=== PATIENT | male | born 1965 | race Native Hawaiian/Other Pacific Islander ===

== ENCOUNTER 2018-02-22 19:53 | Observation (INO) | payer BC ==
--- NOTE | 2018-02-22 20:44 | PDOC ---
History of Present Illness - General Chief Complaint: Rectal Bleed Stated Complaint: BLOOD IN STOOL Time Seen by Provider: 02/22/18 20:44 - History of Present Illness Initial Comments: 02/22/18 21:03 The patient is a 52 year old male with a history of Alcohol Abuse, Liver Disease who presents for evaluation of rectal bleeding. The patient reports noting dark red blood in his still yesterday evening prompting his presentation to the ED for further evaluation. He notes that he recently got out of rehab for alcohol abuse and is currently staying at a half-way house. He otherwise denies fevers, chills, SOB, chest pain, nausea, vomiting, abdominal pain, or changes with urination. Past History - Past Medical History Allergies/Adverse Reactions: Allergies Allergy/AdvReac Type Severity Reaction Status Date / Time No Known Allergies Allergy Verified 02/22/18 20:00 COPD: No Liver Disease: Yes - Suicide/Smoking/Psychosocial Hx Smoking History: Former smoker Have you smoked in the past 12 months: No Information on smoking cessation initiated: No Hx Alcohol Use: No Drug/Substance Use Hx: No Review of Systems - Review of Systems Comments:: 02/22/18 21:04 Constitutional: No fevers, chills, fatigue, malaise HEENT: No Rhinorrhea, nasal congestion, visual changes Cardiovascular: No chest pain, syncope, palpitations, lightheadedness Respiratory: Cough. No SOB, Hemoptysis, Gastrointestinal: Rectal Bleeding. No Abdominal pain, Nausea, Vomiting, Constipation, Diarrhea, Melena Genitourinary: No Dysuria, Frequency, Urgency, Hesitancy, Hematuria, Flank pain Musculoskeletal: No Myalgia, arthralgia Skin: No rashes, itching, bruising, pallor Neurologic: No Headache, Dizziness, Numbness, Weakness, or Tingling Psychiatric: No Hallucinations. No SI or HI *Physical Exam - Vital Signs Last Vital Signs Temp Pulse Resp BP Pulse Ox 98.0 F 115 H 16 138/79 100 02/22/18 19:57 02/22/18 19:57 02/22/18 19:57 02/22/18 19:57 02/22/18 19:57 - Physical Exam Comments: 02/22/18 21:05 General Appearance: Nourished. No Apparent Distress HEENT: Sclera Icteris noted on exam. No Pharyngeal Erythema, Tonsillar Exudate , Tonsillar Erythema Neck: No Cervical Lymphadenopathy Respiratory/Chest: Lungs Clear, Normal Breath Sounds. No Crackles, Rales, Rhonchi, Wheezing Cardiovascular: Regular Rhythm, Regular Rate. No Murmur, Gallops, Rubs Gastrointestinal/Abdominal: Normal Bowel Sounds, Soft. No Guarding, Rebound, Tenderness Rectal Exam: No Gross Blood or Melena. No Hemorrhoids Musculoskeletal: No CVA Tenderness Extremity: Normal Capillary Refill Integumentary: Normal Color, Dry, Warm Neurologic: Fully Oriented, Alert, Normal Mood/Affect, Normal Response, Moderate Sedation - Procedure Monitoring Vital Signs: Procedure Monitoring Vital Signs Temperature 98.0 F 02/22/18 19:57 Pulse Rate 115 H 02/22/18 19:57 Respiratory Rate 16 02/22/18 19:57 Blood Pressure 138/79 02/22/18 19:57 O2 Sat by Pulse Oximetry (%) 100 02/22/18 19:57 ED Treatment Course - LABORATORY CBC & Chemistry Diagram: 02/22/18 21:30 02/22/18 21:30 Medical Decision Making - Medical Decision Making 02/22/18 21:06 The patient is a 52 year old male with a history of Alcohol Abuse, Liver Disease who presents for evaluation of rectal bleeding. Given the patient's history and physical exam, we will obtain a cbc, cmp, ammonia, stool for occult blood, coags to evaluate further. We will continue to monitor and reassess while here in the ED. 02/22/18 22:39 CBC is unremarkable. CMP demonstrates a t.bili of 4.3. Stool for occult blood was positive. We have treated the patient with protonix here in the ED. Given his rectal bleeding, sclera icteris, elevated t.bili and poor outpatient follow up we believe he require observation admission for GI consultation. We will obtain a gallbladder US to evaluate further as well. We discussed the case with the hospitalist team who accepted the patient for admission. *DC/Admit/Observation/Transfer Diagnosis at time of Disposition: Rectal bleeding Abdominal pain Qualifiers: Abdominal location: unspecified location Qualified Code(s): R10.9 - Unspecified abdominal pain - Discharge Dispostion Condition at time of disposition: Stable Decision to Admit order: Yes - Referrals - Patient Instructions - Post Discharge Activity
[2018-02-22] MEDS ORDERED: PANTOPRAZOLE SODIUM 40 MG VIAL IVPUSH ONE (21:10)
[2018-02-22 21:49] LABS: BASO % 0.9 % (0-2.0); EOS % 0.3 % (0-4.5); HEMATOCRIT 38.5 % (35.4-49); HEMOGLOBIN 13.6 GM/dL (11.7-16.9); LYMPH % 18.3 % (8-40); MCH 39.2 pg (25.7-33.7); MCHC 35.3 g/dl (32.0-35.9); MEAN PLT VOLUME 7.9 fl (7.5-11.1); MONO % 12.3 % (3.8-10.2); NEUT % 68.2 % (42.8-82.8); PLATELET COUNT 297 K/MM3 (134-434); RBC 3.47 M/mm3 (4.00-5.60); RDW 16.5 % (11.9-15.9); WHITE BLOOD COUNT 6.7 K/mm3 (4.0-10.0)
--- NOTE | 2018-02-22 21:50 | PDOC ---
Attending Attestation - Resident Resident Name: Kali Ferris - ED Attending Attestation I have performed the following: I have examined & evaluated the patient, The case was reviewed & discussed with the resident, I agree w/resident's findings & plan, Exceptions are as noted - HPI HPI: 02/22/18 21:48 52-year-old male presents because he found red blood in his stool Patient denies any fever or chills or diarrhea. Past medical history long-standing alcohol abuse, liver cirrhosis, recently discharged from [facility] and currently in a [facility] house here in [place]. He typically resides in the [place], [place]. He has no primary care physician and usually does not seek any medical care - Physicial Exam PE: 02/22/18 21:50 52 yo male looking p/w history of red blood in his stool head ncat eyes icteric sclera,olinda,eomi lungs no wheezing,no crackles,cta b/l cvs [id number] abd no guarding,no rebound no cva tenderness ext + pedal edema rectal brown stool, no melena skin warm and dry neuro axox3, ambulatory 02/22/18 22:22 - Medical Decision Making 02/22/18 22:23 stool culture for blood is POSITIVE no anemia LFT and tbili elevated ammonia level is high >85 02/22/18 23:47 pt admitted to med/surg
[2018-02-22 22:05] LABS: INR 1.54 (0.83-1.09); PROTHROMBIN TIME (PATIENT) 18.3 SEC (9.7-13.0)
[2018-02-22 22:12] LABS: ALBUMIN 2.7 g/dl (3.4-5.0); ALK PHOS 100 U/L (45-117); ANION GAP 10 MMOL/L (8-16); BILIRUBIN,TOTAL 4.3 mg/dL (0.2-1); BLOOD UREA NITROGEN 9 mg/dL (7-18); CALCIUM 8.5 mg/dL (8.5-10.1); CHLORIDE 108 mmol/L (98-107); CO2 26 mmol/L (21-32); CREATININE 0.7 mg/dL (0.55-1.3); GLUCOSE,RANDOM 86 mg/dL (74-106); POTASSIUM 3.9 mmol/L (3.5-5.1); SGOT/AST 134 U/L (15-37); SGPT/ALT 47 U/L (13-61); SODIUM 143 mmol/L (136-145); TOT PROT 6.4 g/dl (6.4-8.2)
[2018-02-22] MEDS ORDERED: PANTOPRAZOLE SODIUM 40 MG VIAL ONE (22:56)
--- NOTE | 2018-02-22 23:12 | HP ---
CHIEF COMPLAINT: abdominal pain and had bright red blood from rectum yesterday PCP:none HISTORY OF PRESENT ILLNESS: 52 year old male with history of alcohol abuse, liver cirrhosis and known gallbladder sludge who just completed 27 days of detox in rehabilitation who presents with symptoms of abdominal pain and bright red blood from the rectum which started yesterday. He reports mild shortness of breath. He denies chest pain, syncopy, dizziness, fever, chills, diarrhea or malaise. Upon evaluation in the ER he was found to have an elevated total bilirubin of 4.3, alt 47 and ast 134, normal platelets, hematocrit and hemoglobin . Ammonia level is elevated at 86.17 and a low albumin. Blood stool guaiac is positive. He is hemodynamically stable and currently has no evidence of active bleeding. He was given one dosage of IV protonix in the ER.He is pending a gallbladder ultrasound. ER course was notable for: (1)?GI Bleed(stool occult positive) (2)ETOH Abuse/ Liver Cirrhosis /Gallbladder sludge Recent Travel:Denies PAST MEDICAL HISTORY: Alcohol Abuse Liver Cirrhosis PAST SURGICAL HISTORY: Knee Surgery Social History: Smoking: smokes for >20 years, reports about 5 cigarettes /day Alcohol:history of alcohol abuse, just completed detox/rehab,reports last drink was 27 days ago Drugs: denies Family History: Allergies No Known Allergies Allergy (Verified 02/22/18 20:00) HOME MEDICATIONS: REVIEW OF SYSTEMS CONSTITUTIONAL: Absent: fever, chills, diaphoresis, generalized weakness, malaise, loss of appetite, weight change HEENT: Absent: rhinorrhea, nasal congestion, throat pain, throat swelling, difficulty swallowing, mouth swelling, ear pain, eye pain, visual changes CARDIOVASCULAR: Absent: chest pain, syncope, palpitations, irregular heart rate, lightheadedness , peripheral edema RESPIRATORY: Absent: cough, mild shortness of breath, dyspnea with exertion, orthopnea, wheezing, stridor, hemoptysis GASTROINTESTINAL: Absent: abdominal pain, abdominal distension, nausea, vomiting, diarrhea, constipation, melena, hematochezia GENITOURINARY: Absent: dysuria, frequency, urgency, hesitancy, hematuria, flank pain, genital pain, rectal bleed MUSCULOSKELETAL: Absent: myalgia, arthralgia, joint swelling, back pain, neck pain SKIN: Absent: rash, itching, pallor HEMATOLOGIC/IMMUNOLOGIC: Absent: easy bleeding, easy bruising, lymphadenopathy, frequent infections ENDOCRINE: Absent: unexplained weight gain, unexplained weight loss, heat intolerance, cold intolerance NEUROLOGIC: Absent: headache, focal weakness or paresthesias, dizziness, unsteady gait, seizure, mental status changes, bladder or bowel incontinence PSYCHIATRIC: Absent: anxiety, depression, suicidal or homicidal ideation, hallucinations. PHYSICAL EXAMINATION Vital Signs - 24 hr 02/22/18 19:57 Temperature 98.0 F Pulse Rate 115 H Respiratory 16 Rate Blood Pressure 138/79 O2 Sat by Pulse 100 Oximetry (%) GENERAL: awake, alert, and fully oriented, in no acute distress HEAD: normal with no signs of trauma EYES: pupils equal, round and reactive to light, sclera anicteric EARS, NOSE, THROAT: ears normal, nares patent, oropharynx clear without exudates. moist mucous membranes. NECK: Normal range of motion, supple without lymphadenopathy, JVD, or masses. LUNGS: Breath sounds equal, clear to auscultation bilaterally. no wheezes, and no crackles. no accessory muscle use HEART: Regular rate and rhythm, normal S1 and S2 without murmur, rub or gallop ABDOMEN: soft, nontender, not distended, normoactive bowel sounds, no guarding, no rebound, no masses MUSCULOSKELETAL: Normal range of motion at all joints. No bony deformities or tenderness. No CVA tenderness. UPPER EXTREMITIES: 2+ pulses, warm, well-perfused. No cyanosis. No clubbing. No peripheral edema LOWER EXTREMITIES: 2+ pulses, warm, well-perfused. No calf tenderness. No peripheral edema NEUROLOGICAL: normal speech Psch: Appropriate and cooperative SKIN: Warm, dry, normal turgor, no rashes or lesions noted, normal capillary refill. Laboratory Results - last 24 hr 02/22/18 02/22/18 02/22/18 20:50 21:30 21:30 WBC 6.7 RBC 3.47 L Hgb 13.6 Hct 38.5 MCV 111.0 H MCH 39.2 H MCHC 35.3 RDW 16.5 H Plt Count 297 MPV 7.9 Absolute Neuts (auto) 4.6 Neutrophils % 68.2 Lymphocytes % 18.3 Monocytes % 12.3 H Eosinophils % 0.3 Basophils % 0.9 Nucleated RBC % 0 PT with INR 18.30 H INR 1.54 H PTT (Actin FS) 36.0 Sodium Potassium Chloride Carbon Dioxide Anion Gap BUN Creatinine Creat Clearance w eGFR Random Glucose Calcium Total Bilirubin AST ALT Alkaline Phosphatase Ammonia Total Protein Albumin Stool Occult Blood Positive 02/22/18 02/22/18 21:30 21:30 WBC RBC Hgb Hct MCV MCH MCHC RDW Plt Count MPV Absolute Neuts (auto) Neutrophils % Lymphocytes % Monocytes % Eosinophils % Basophils % Nucleated RBC % PT with INR INR PTT (Actin FS) Sodium 143 Potassium 3.9 Chloride 108 H Carbon Dioxide 26 Anion Gap 10 BUN 9 Creatinine 0.7 Creat Clearance w eGFR > 60 Random Glucose 86 Calcium 8.5 Total Bilirubin 4.3 H AST 134 H ALT 47 Alkaline Phosphatase 100 Ammonia 86.17 H Total Protein 6.4 Albumin 2.7 L Stool Occult Blood ASSESSMENT/PLAN: 52 year old male with history of alcohol abuse, liver cirrhosis and known gallbladder sludge who just completed 27 days of detox in ehabilitation facility who presented with symptoms of abdominal pain and bright red blood from the rectum. He was found to have an elevated total bilirubin of 4.3, alt 47 and ast 134, normal platelets, hematocrit and hemoglobin . Ammonia level was elevated. Blood stool guaiac was positive. ?GI Bleed(stool occult positive) Hemodynamically stable, tacycardic in this setting, afebrile, no significant anemia, no thrombocytopenia. Received IV protonix. Avoid NSAID's and aspirin. NPO after midnight in anticipation of GI procedure tomorrow. GI consulted - Dr. Phillips. Known Gallbladder Sludge Pending gallbladder US. ETOH Abuse/ Liver Cirrhosis Ammonia level elevated. No evidence of DT's/withdrawal or encephalopathy. Low albumin, Added thiamine and folic acid. FEN NPO after midnight.Monitor electrolytes. Visit type - Emergency Visit Emergency Visit: Yes ED Registration Date: 02/22/18 Care time: The patient presented to the Emergency Department on the above date and was hospitalized for further evaluation of their emergent condition. - New Patient This patient is new to me today: Yes Date on this admission: 02/22/18 - Critical Care Critical Care patient: No
[2018-02-23 01:29] LABS: ANISOCYTOSIS 1+; MACROCYTOSIS 2+; PLATELET ESTIMATE NORMAL
[2018-02-23 01:50] VITALS: BMI 30.9
[2018-02-23 07:44] LABS: ALBUMIN 2.3 g/dl (3.4-5.0); ALK PHOS 81 U/L (45-117); ANION GAP 5 MMOL/L (8-16); BILIRUBIN,TOTAL 3.6 mg/dL (0.2-1); BLOOD UREA NITROGEN 8 mg/dL (7-18); CHLORIDE 109 mmol/L (98-107); CO2 28 mmol/L (21-32); CREATININE 0.5 mg/dL (0.55-1.3); GLUCOSE,RANDOM 76 mg/dL (74-106); POTASSIUM 4.1 mmol/L (3.5-5.1); SGOT/AST 103 U/L (15-37); SGPT/ALT 38 U/L (13-61); SODIUM 142 mmol/L (136-145); TOT PROT 5.6 g/dl (6.4-8.2)
[2018-02-23 08:36] LABS: HEMATOCRIT 35.6 % (35.4-49); HEMOGLOBIN 12.6 GM/dL (11.7-16.9); MCH 38.8 pg (25.7-33.7); MCHC 35.5 g/dl (32.0-35.9); MEAN CELL VOLUME 109.5 fl (80-96); MEAN PLT VOLUME 8.1 fl (7.5-11.1); PLATELET COUNT 257 K/MM3 (134-434); RBC 3.25 M/mm3 (4.00-5.60); RDW 16.6 % (11.9-15.9); WHITE BLOOD COUNT 5.6 K/mm3 (4.0-10.0)
--- NOTE | 2018-02-23 09:39 | EKG ---
Test Reason : Blood Pressure : / mmHG Vent. Rate : 097 BPM Atrial Rate : 097 BPM P-R Int : 132 ms QRS Dur : 076 ms QT Int : 362 ms P-R-T Axes : -11 -26 008 degrees QTc Int : 459 ms NORMAL SINUS RHYTHM SEPTAL INFARCT , AGE UNDETERMINED ABNORMAL ECG NO PREVIOUS ECGS AVAILABLE Confirmed by EDILBERTO CERVANTES, RUFINA ([id number]) on 02/23/2018 9:38:47 AM Referred By: Confirmed By:RUFINA CASANOVA MD
[2018-02-23] MEDS: THIAMINE HCL 100 MG TABLET (FP) PO SCH (10:34)
[2018-02-23] MEDS: FOLIC ACID 1 MG TABLET (FP) PO SCH (10:34)
--- NOTE | 2018-02-23 12:49 | CON.GI ---
Consult Consult Specialty:: Medicine Reason for Consultation:: rectal bleed, cirrhosis - History of Present Illness Chief Complaint: BRBPR History of Present Illness: 52M with h/o ETOH and seems cirrhosis based on imaging here presenting for evaluation of multiple episodes of hematochezia friday and friday. He denies stool with these episodes, states >20 times. No dizziness or lightheadedness, no N/V. +ETOH hx, was sober for 6 years but relapsed recently after family and completed 1 month rehab. Reports no prior endoscopy or colonoscopy. Is having clears today, but reports that last episode of bleeding was just before interview. - History Source History Provided By: Patient Limitations to Obtaining History: No Limitations - Alcohol/Substance Use Hx Alcohol Use: Yes (2 quarts of vodka daily) - Smoking History Smoking history: Current every day smoker Have you smoked in the past 12 months: Yes Aproximately how many cigarettes per day: 5 Home Medications - Allergies Allergies/Adverse Reactions: Allergies Allergy/AdvReac Type Severity Reaction Status Date / Time No Known Allergies Allergy Verified 02/22/18 20:00 Review of Systems - Review of Systems Constitutional: reports: No Symptoms Eyes: reports: No Symptoms HENT: reports: No Symptoms Neck: reports: No Symptoms Cardiovascular: reports: No Symptoms Respiratory: reports: No Symptoms Gastrointestinal: reports: Rectal Bleeding Musculoskeletal: reports: No Symptoms Neurological: reports: No Symptoms Hematology/Lymphatic: reports: No Symptoms Psychiatric: reports: No Symptoms Physical Exam-GI Vital Signs: Vital Signs Temperature 98.1 F 02/23/18 06:00 Pulse Rate 85 02/23/18 11:51 Respiratory Rate 18 02/23/18 11:51 Blood Pressure 149/86 02/23/18 11:51 O2 Sat by Pulse Oximetry (%) 96 02/23/18 04:00 Constitutional: Yes: Well Nourished, No Distress Eyes: Yes: WNL, Sclera Icterus Cardiovascular: Yes: Regular Rate and Rhythm Respiratory: Yes: CTA Bilaterally ...Auscultate: Yes: Normoactive Bowel Sounds ...Palpate: Yes: Soft. No: Tenderness ...Percussion: No: Fluid Wave ...Rectal Exam: Yes: Other (Perianal area irritated; SIRENA without blood, stool, mass) Musculoskeletal: Yes: WNL Extremities: Yes: WNL Edema: No Neurological: Yes: WNL, Alert, Oriented Labs: CBC, BMP 02/23/18 06:30 02/23/18 06:30 INR, PTT INR 1.54 (0.83-1.09) H 02/22/18 21:30 Imaging - Results Ultrasound: Report Reviewed Assessment/Plan Painless hematochezia - unlikely upper GI bleeding given stability of hgb and patient hemodynamics. Suspect lower - hemorrhoidal vs diverticular vs ectasia. - clears today - 4L golytely and 20mg PO dulcolax tonight - Please repeat INR in am - plan for colonoscopy +/- EGD tomorrow; NPO after MN Unclear if patient is cirrhotic from labs and imaging - may just be low grade ETOH hepatitis. Gallbladder wall thickening may be related to ascites particularly in absence of pain. Discriminant function 28. - encouraged ETOH abstinence
--- NOTE | 2018-02-23 13:48 | PN ---
Physical Exam: SUBJECTIVE: Patient seen and examined Feels better. But c/o thirst. Otherwise No Acute distress OBJECTIVE: Vital Signs Period Temp Pulse Resp BP Sys/Damon Pulse Ox Last 24 Hr 98.0 F-98.7 F 85-115 16-20 134-149/75-94 96-100 GENERAL: The patient is awake, alert, and fully oriented, in no acute distress. HEAD: Normal with no signs of trauma. EYES: PERRL, extraocular movements intact, sclera anicteric, conjunctiva clear. No ptosis. ENT: Ears normal, nares patent, oropharynx clear without exudates, moist mucous membranes. NECK: Trachea midline, full range of motion, supple. LUNGS: Breath sounds equal, clear to auscultation bilaterally, no wheezes, no crackles, no accessory muscle use. HEART: Regular rate and rhythm, S1, S2 without murmur, rub or gallop. ABDOMEN: Soft, nontender, nondistended, normoactive bowel sounds, no guarding, no rebound, no hepatosplenomegaly, no masses. EXTREMITIES: 2+ pulses, warm, well-perfused, no edema. NEUROLOGICAL: Cranial nerves II through XII grossly intact. Normal speech, gait not observed. PSYCH: Normal mood, normal affect. SKIN: Warm, dry, normal turgor, no rashes or lesions noted Laboratory Results - last 24 hr 02/22/18 02/22/18 02/22/18 20:50 21:30 21:30 WBC 6.7 RBC 3.47 L Hgb 13.6 Hct 38.5 MCV 111.0 H MCH 39.2 H MCHC 35.3 RDW 16.5 H Plt Count 297 MPV 7.9 Absolute Neuts (auto) 4.6 Neutrophils % 68.2 Lymphocytes % 18.3 Monocytes % 12.3 H Eosinophils % 0.3 Basophils % 0.9 Nucleated RBC % 0 Hypochromia 0 Platelet Estimate Normal Polychromasia 0 Poikilocytosis 0 Anisocytosis 1+ Microcytosis 0 Macrocytosis 2+ PT with INR 18.30 H INR 1.54 H PTT (Actin FS) 36.0 Sodium Potassium Chloride Carbon Dioxide Anion Gap BUN Creatinine Creat Clearance w eGFR Random Glucose Calcium Total Bilirubin AST ALT Alkaline Phosphatase Ammonia Total Protein Albumin Stool Occult Blood Positive 02/22/18 02/22/18 02/23/18 21:30 21:30 06:30 WBC 5.6 RBC 3.25 L Hgb 12.6 Hct 35.6 MCV 109.5 H MCH 38.8 H MCHC 35.5 RDW 16.6 H Plt Count 257 MPV 8.1 Absolute Neuts (auto) Neutrophils % Lymphocytes % Monocytes % Eosinophils % Basophils % Nucleated RBC % Hypochromia Platelet Estimate Polychromasia Poikilocytosis Anisocytosis Microcytosis Macrocytosis PT with INR INR PTT (Actin FS) Sodium 143 Potassium 3.9 Chloride 108 H Carbon Dioxide 26 Anion Gap 10 BUN 9 Creatinine 0.7 Creat Clearance w eGFR > 60 Random Glucose 86 Calcium 8.5 Total Bilirubin 4.3 H AST 134 H ALT 47 Alkaline Phosphatase 100 Ammonia 86.17 H Total Protein 6.4 Albumin 2.7 L Stool Occult Blood 02/23/18 06:30 WBC RBC Hgb Hct MCV MCH MCHC RDW Plt Count MPV Absolute Neuts (auto) Neutrophils % Lymphocytes % Monocytes % Eosinophils % Basophils % Nucleated RBC % Hypochromia Platelet Estimate Polychromasia Poikilocytosis Anisocytosis Microcytosis Macrocytosis PT with INR INR PTT (Actin FS) Sodium 142 Potassium 4.1 Chloride 109 H Carbon Dioxide 28 Anion Gap 5 L BUN 8 Creatinine 0.5 L Creat Clearance w eGFR > 60 Random Glucose 76 Calcium 8.0 L Total Bilirubin 3.6 H AST 103 H ALT 38 Alkaline Phosphatase 81 Ammonia Total Protein 5.6 L Albumin 2.3 L Stool Occult Blood Active Medications Generic Name Dose Route Start Last Admin Trade Name Freq PRN Reason Stop Dose Admin Bisacodyl 20 mg 02/23/18 14:30 Dulcolax - PO 02/23/18 14:31 ONCE ONE Folic Acid 1 mg 02/23/18 10:02/23/18 10:34 Folic Acid - PO 1 mg DAILY AIDEN Administration Thiamine HCl 100 mg 02/23/18 10:00 02/23/18 10:34 Vitamin B1 - PO 100 mg DAILY AIDEN Administration ASSESSMENT/PLAN: 52 year old male with history of alcohol abuse, liver cirrhosis and known gallbladder sludge who just completed 27 days of detox in rehabilitation who presents with symptoms of abdominal pain and bright red blood from the rectum which started yesterday. He reports mild shortness of breath. He denies chest pain, syncopy, dizziness, fever, chills, diarrhea or malaise. Upon evaluation in the ER he was found to have an elevated total bilirubin of 4.3, alt 47 and ast 134, normal platelets, hematocrit and hemoglobin . Ammonia level is elevated at 86.17 and a low albumin. Blood stool guaiac is positive. He is hemodynamically stable and currently has no evidence of active bleeding. He was given one dosage of IV protonix in the ER.He is pending a gallbladder ultrasound. # Acute LGI bleed. H/H stable. Trend CBC closely. F/U with GI eval. Would start clear liquid for now. # Chronic etoh abuse with Liver cirrhosis. c/w thiamine /folate. Plan d/w the patient at bedside. Visit type - Emergency Visit Emergency Visit: Yes ED Registration Date: 02/22/18 Care time: The patient presented to the Emergency Department on the above date and was hospitalized for further evaluation of their emergent condition. - New Patient This patient is new to me today: Yes Date on this admission: 02/23/18 - Critical Care Critical Care patient: No - Discharge Referral Referred to [facility] Med P.C.: No
[2018-02-23] MEDS ORDERED: PEG3350/SOD SULF,BICARB,CL/KCL 4,000 ML SOLN.RECON PO ONE (14:30)
[2018-02-23] MEDS ORDERED: BISACODYL 5 MG TABLET.DR (FP) PO ONE (14:30)
[2018-02-23] MEDS: ACETAMINOPHEN 325 MG TABLET (FP) PO PRN ×2 (15:51→21:41)
[2018-02-23] MEDS ORDERED: PHYTONADIONE 10 MG/1 ML AMP SQ ONE (16:00)
[2018-02-23] MEDS: FLUTICASONE PROP 0.05% 16 GM NASAL SPRAY NS SCH (22:57)
[2018-02-24] MEDS: ACETAMINOPHEN 325 MG TABLET (FP) PO PRN ×2 (06:47→17:46)
[2018-02-24 08:05] LABS: BASO % 0.9 % (0-2.0); EOS % 1.7 % (0-4.5); HEMATOCRIT 41.7 % (35.4-49); HEMOGLOBIN 13.4 GM/dL (11.7-16.9); LYMPH % 22.2 % (8-40); MCH 35.6 pg (25.7-33.7); MCHC 32.3 g/dl (32.0-35.9); MEAN CELL VOLUME 110.3 fl (80-96); MEAN PLT VOLUME 7.4 fl (7.5-11.1); MONO % 12.9 % (3.8-10.2); NEUT % 62.3 % (42.8-82.8); PLATELET COUNT 254 K/MM3 (134-434); RBC 3.78 M/mm3 (4.00-5.60); RDW 16.8 % (11.9-15.9); WHITE BLOOD COUNT 6.3 K/mm3 (4.0-10.0)
[2018-02-24 08:26] LABS: INR 1.39 (0.83-1.09); PROTHROMBIN TIME (PATIENT) 16.4 SEC (9.7-13.0)
[2018-02-24] MEDS ORDERED: SODIUM CHLORIDE 1,000 ML IV SCH (08:45)
[2018-02-24 09:10] LABS: ALBUMIN 2.6 g/dl (3.4-5.0); ALK PHOS 89 U/L (45-117); ANION GAP 9 MMOL/L (8-16); BILIRUBIN,TOTAL 4.1 mg/dL (0.2-1); BLOOD UREA NITROGEN 6 mg/dL (7-18); CALCIUM 8.2 mg/dL (8.5-10.1); CHLORIDE 106 mmol/L (98-107); CO2 28 mmol/L (21-32); CREATININE 0.5 mg/dL (0.55-1.3); GLUCOSE,RANDOM 74 mg/dL (74-106); POTASSIUM 3.2 mmol/L (3.5-5.1); SGOT/AST 99 U/L (15-37); SGPT/ALT 41 U/L (13-61); SODIUM 142 mmol/L (136-145); TOT PROT 6.1 g/dl (6.4-8.2)
[2018-02-24] MEDS: KCL 10 MEQ IVPB 10 MEQ/100 ML INFUS.BAG IVPB SCH ×2 (10:11→12:22)
--- NOTE | 2018-02-24 11:25 | PN ---
Progress Note (short form) - Note Progress Note: EGD/COlon complete. Reports placed in procedural section of physical chart and to be scanned into [email or web address]
[2018-02-24] MEDS: FLUTICASONE PROP 0.05% 16 GM NASAL SPRAY NS SCH ×2 (12:21→22:11)
[2018-02-24] MEDS: THIAMINE HCL 100 MG TABLET (FP) PO SCH (12:22)
[2018-02-24] MEDS: FOLIC ACID 1 MG TABLET (FP) PO SCH (12:22)
[2018-02-24] MEDS: PANTOPRAZOLE 40 MG TABLET (FP) PO SCH (13:13)
--- NOTE | 2018-02-24 13:48 | PN ---
Physical Exam: SUBJECTIVE: Patient seen and examined at the bedside. had colonoscopy today, feels well, denies pain. OBJECTIVE: post colonoscopy today replete K Vital Signs Period Temp Pulse Resp BP Sys/Damon Pulse Ox Last 24 Hr 98.0 F-99.1 F 78-104 18-22 114-153/71-98 91-99 GENERAL: The patient is awake, alert, and fully oriented, in no acute distress. HEAD: Normal with no signs of trauma. EYES: PERRL, extraocular movements intact, sclera anicteric, conjunctiva clear. No ptosis. ENT: Ears normal, nares patent, oropharynx clear without exudates, moist mucous membranes. NECK: Trachea midline, full range of motion, supple. LUNGS: Breath sounds equal, clear to auscultation bilaterally, no wheezes, no crackles, no accessory muscle use. HEART: Regular rate and rhythm, S1, S2 without murmur, rub or gallop. ABDOMEN: Soft, nontender, nondistended, normoactive bowel sounds, no guarding, no rebound, no hepatosplenomegaly, no masses. EXTREMITIES: 2+ pulses, warm, well-perfused, no edema. NEUROLOGICAL: Cranial nerves II through XII grossly intact. Normal speech, gait not observed. PSYCH: Normal mood, normal affect. SKIN: Warm, dry, normal turgor, no rashes or lesions noted Laboratory Results - last 24 hr 02/24/18 02/24/18 02/24/18 07:30 07:30 08:45 WBC 6.3 RBC 3.78 L Hgb 13.4 Hct 41.7 D MCV 110.3 H MCH 35.6 H MCHC 32.3 RDW 16.8 H Plt Count 254 MPV 7.4 L Absolute Neuts (auto) 3.9 Neutrophils % 62.3 Lymphocytes % 22.2 D Monocytes % 12.9 H Eosinophils % 1.7 D Basophils % 0.9 Nucleated RBC % 0 PT with INR 16.40 H INR 1.39 H Sodium 142 Potassium 3.2 L Chloride 106 Carbon Dioxide 28 Anion Gap 9 BUN 6 L Creatinine 0.5 L Creat Clearance w eGFR > 60 Random Glucose 74 Calcium 8.2 L Total Bilirubin 4.1 H AST 99 H ALT 41 Alkaline Phosphatase 89 Total Protein 6.1 L Albumin 2.6 L Active Medications Generic Name Dose Route Start Last Admin Trade Name Freq PRN Reason Stop Dose Admin Acetaminophen 650 mg 02/23/18 15:41 02/24/18 06:47 Tylenol - PO 650 mg Q6H PRN Administration HEADACHE Fluticasone Propionate 1 spray 02/23/18 22:00 02/24/18 12:21 Flonase - NS Not Given BID AIDEN Folic Acid 1 mg 02/23/18 10:00 02/24/18 12:22 Folic Acid - PO 1 mg DAILY AIDEN Administration Sodium Chloride 1,000 mls @ 50 mls/hr 02/24/18 08:45 02/24/18 09:11 Normal Saline - IV 02/25/18 08:36 50 mls/hr ASDIR AIDEN Administration Pantoprazole Sodium 40 mg 02/24/18 12:30 02/24/18 13:13 Protonix - PO 40 mg DAILY AIDEN Administration Starch 1 each 02/24/18 22:00 Anusol Suppository - RC 03/01/18 21:59 BID AIDEN Thiamine HCl 100 mg 02/23/18 10:00 02/24/18 12:22 Vitamin B1 - PO 100 mg DAILY AIDEN Administration ASSESSMENT/PLAN: Patient is a 52 year old male with history of alcohol abuse, liver cirrhosis and gallbladder sludge. Patient is s/p 27 days of detox at a rehab and presents to the ED on 02/22/2018 with abdominal pain and bright red blood from rectum that started the day before admission. Upon evaluation in the ER he was found to have an elevated total bilirubin of 4.3, alt 47 and ast 134, normal platelets, normal hct/hmg, elevated ammonia level at 86. GI: Acute lowr GI bleed hmg/hmt stable. continue to trend with daily cbc. s/p EGD and colonoscopy today EGD 02/24/2018: avoid nsaids, continue protonix 40mg daily x 8 weeks. repeat EGD in 2 months to assess for ulcer healing. Colonoscopy 02/24/2018: colon mucosa normal, gi bleeding may be due to internal hemorrhoids. On full liquid diet Psyche: ETOH abuse Liver cirrhosis patient is s/p rehab continue with thiamine, folate fen full liquid diet, advance per gi monitor electrolytes repleted K, recheck levels prophy SCDs Visit type - Emergency Visit Emergency Visit: Yes ED Registration Date: 02/22/18 Care time: The patient presented to the Emergency Department on the above date and was hospitalized for further evaluation of their emergent condition. - New Patient This patient is new to me today: Yes Date on this admission: 02/24/18 - Critical Care Critical Care patient: No - Discharge Referral Referred to [facility] No
[2018-02-24] MEDS ORDERED: PT OWN MED DRAWER 7, Y5N ONE (21:53)
[2018-02-24] MEDS: PHENYLEPHRINE 0.25%/STARCH 1 EACH SUPP.RECT RC SCH (22:11)
[2018-02-25] MEDS: ACETAMINOPHEN 325 MG TABLET (FP) PO PRN (05:02)
[2018-02-25 07:21] LABS: BASO % 0.6 % (0-2.0); EOS % 1.7 % (0-4.5); HEMATOCRIT 41.7 % (35.4-49); HEMOGLOBIN 13.5 GM/dL (11.7-16.9); MCH 35.4 pg (25.7-33.7); MCHC 32.4 g/dl (32.0-35.9); MEAN CELL VOLUME 109.1 fl (80-96); MEAN PLT VOLUME 7.4 fl (7.5-11.1); MONO % 10.2 % (3.8-10.2); NEUT % 69.5 % (42.8-82.8); PLATELET COUNT 238 K/MM3 (134-434); RBC 3.82 M/mm3 (4.00-5.60); RDW 17.3 % (11.9-15.9)
[2018-02-25 07:44] LABS: ALBUMIN 2.5 g/dl (3.4-5.0); ALK PHOS 89 U/L (45-117); ANION GAP 6 MMOL/L (8-16); BILIRUBIN,TOTAL 4.2 mg/dL (0.2-1); BLOOD UREA NITROGEN 4 mg/dL (7-18); CALCIUM 8.3 mg/dL (8.5-10.1); CHLORIDE 108 mmol/L (98-107); CO2 26 mmol/L (21-32); CREATININE 0.6 mg/dL (0.55-1.3); GLUCOSE,RANDOM 87 mg/dL (74-106); MAGNESIUM 1.9 mg/dL (1.8-2.4); POTASSIUM 3.3 mmol/L (3.5-5.1); SGOT/AST 80 U/L (15-37); SGPT/ALT 36 U/L (13-61); SODIUM 140 mmol/L (136-145); TOT PROT 6.2 g/dl (6.4-8.2)
[2018-02-25] MEDS ORDERED: POTASSIUM CHLORIDE TABS 20 MEQ TABLET.ER (FP) PO ONE (09:11)
[2018-02-25] MEDS: PANTOPRAZOLE 40 MG TABLET (FP) PO SCH (09:37)
[2018-02-25] MEDS: THIAMINE HCL 100 MG TABLET (FP) PO SCH (09:38)
[2018-02-25] MEDS: FOLIC ACID 1 MG TABLET (FP) PO SCH (09:38)
[2018-02-25] MEDS: FLUTICASONE PROP 0.05% 16 GM NASAL SPRAY NS SCH (09:38)
[2018-02-25] MEDS: PHENYLEPHRINE 0.25%/STARCH 1 EACH SUPP.RECT RC SCH (09:38)
--- NOTE | 2018-02-25 11:22 | DS ---
Physical Exam: SUBJECTIVE: Patient seen and examined OBJECTIVE: Vital Signs Period Temp Pulse Resp BP Sys/Damon Pulse Ox Last 24 Hr 98.1 F-99.4 F 81-90 17-22 121-150/71-94 91-99 PHYSICAL EXAM GENERAL: The patient is awake, alert, and fully oriented, in no acute distress. HEAD: Normal with no signs of trauma. EYES: PERRL, extraocular movements intact, sclera anicteric, conjunctiva clear. ENT: Ears normal, nares patent, oropharynx clear without exudates, moist mucous membranes. NECK: Trachea midline, full range of motion, supple. LUNGS: Breath sounds equal, clear to auscultation bilaterally, no wheezes, no crackles, no accessory muscle use. HEART: Regular rate and rhythm, S1, S2 without murmur, rub or gallop. ABDOMEN: Soft, nontender, nondistended, normoactive bowel sounds, no guarding, no rebound, no hepatosplenomegaly, no masses. EXTREMITIES: 2+ pulses, warm, well-perfused, no edema. NEUROLOGICAL: Cranial nerves II through XII grossly intact. Normal speech, gait not observed. PSYCH: Normal mood, normal affect. SKIN: Warm, dry, normal turgor, no rashes or lesions noted. LABS Laboratory Results - last 24 hr 02/25/18 02/25/18 06:00 06:00 WBC 9.0 RBC 3.82 L Hgb 13.5 Hct 41.7 MCV 109.1 H MCH 35.4 H MCHC 32.4 RDW 17.3 H Plt Count 238 MPV 7.4 L Absolute Neuts (auto) 6.2 Neutrophils % 69.5 Lymphocytes % 18.0 Monocytes % 10.2 Eosinophils % 1.7 Basophils % 0.6 Nucleated RBC % 0 Sodium 140 Potassium 3.3 L Chloride 108 H Carbon Dioxide 26 Anion Gap 6 L BUN 4 L Creatinine 0.6 Creat Clearance w eGFR > 60 Random Glucose 87 Calcium 8.3 L Magnesium 1.9 Total Bilirubin 4.2 H AST 80 H ALT 36 Alkaline Phosphatase 89 Total Protein 6.2 L Albumin 2.5 L HOSPITAL COURSE: Date of Admission:02/22/18 Date of Discharge: 02/25/18 Discharge Summary Reason For Visit: RECTAL HEMORRHAGE, ABDOMINAL PAIN Current Active Problems Abdominal pain (Acute) Rectal bleeding (Acute) Condition: Stable - Instructions - Discharge Referral Referred to [facility] No
[2018-02-25 11:30] VITALS: BP 132/82; PULSE 83; TEMP 97.9
--- NOTE | 2018-02-25 11:38 | DS ---
Physical Exam: SUBJECTIVE: Patient seen and examined at the bedside. Feels well, ambulating in room. Denies pain. No further bleeding. Wants to shower. Patient is willing to continue rehab at the [facility] were is will continue to abstain from alcohol. He reports soft brown bm this am, no blood. Denies abdominal pain, n/v. OBJECTIVE: Patient is to be discharged home. He will follow up with Dr. Wang as an outpatient for the biopsy results of the colonoscopy, egd. Medications called into his pharmacy Patient to return to outpatient facility for alcohol abstinence Vital Signs Period Temp Pulse Resp BP Sys/Damon Pulse Ox Last 24 Hr 97.9 F-99.4 F 81-89 17-22 132-150/75-94 91-99 PHYSICAL EXAM GENERAL: The patient is awake, alert, and fully oriented, in no acute distress. HEAD: Normal with no signs of trauma. EYES: PERRL, extraocular movements intact, sclera anicteric, conjunctiva clear. No ptosis. ENT: Ears normal, nares patent, oropharynx clear without exudates, moist mucous membranes. NECK: Trachea midline, full range of motion, supple. LUNGS: Breath sounds equal, clear to auscultation bilaterally, no wheezes HEART: Regular rate and rhythm ABDOMEN: Soft, nontender, nondistended, normoactive bowel sounds, no guarding, no rebound EXTREMITIES: 2+ pulses, warm, well-perfused, no edema. NEUROLOGICAL: Normal speech, gait not observed. PSYCH: Normal mood, normal affect. SKIN: Warm, dry, normal turgor, no rashes or lesions noted LABS Laboratory Results - last 24 hr 02/25/18 02/25/18 06:00 06:00 WBC 9.0 RBC 3.82 L Hgb 13.5 Hct 41.7 MCV 109.1 H MCH 35.4 H MCHC 32.4 RDW 17.3 H Plt Count 238 MPV 7.4 L Absolute Neuts (auto) 6.2 Neutrophils % 69.5 Lymphocytes % 18.0 Monocytes % 10.2 Eosinophils % 1.7 Basophils % 0.6 Nucleated RBC % 0 Sodium 140 Potassium 3.3 L Chloride 108 H Carbon Dioxide 26 Anion Gap 6 L BUN 4 L Creatinine 0.6 Creat Clearance w eGFR > 60 Random Glucose 87 Calcium 8.3 L Magnesium 1.9 Total Bilirubin 4.2 H AST 80 H ALT 36 Alkaline Phosphatase 89 Total Protein 6.2 L Albumin 2.5 L HOSPITAL COURSE: Patient is a 52 year old male with history of alcohol abuse, liver cirrhosis and gallbladder sludge. Patient is s/p 27 days of detox at a rehab and presents to the ED on 02/22/2018 with abdominal pain and bright red blood from rectum that started the day before admission. Upon evaluation in the ER he was found to have an elevated total bilirubin of 4.3, alt 47 and ast 134, normal platelets, normal hct/hmg, elevated ammonia level at 86. He will be discharged home today and agreement to go to [facility] to continue alcohol abstinence. Hospital course by problem list. Procedures: Colonoscopy 02/25/2018: colon mucosa normal, gi bleeding may be due to internal hemorrhoids. EGD 02/25/2018: the mucosa of the esophagus appeared normal, large hiatal hernia, moderate gastropathy found in the gastric body. duodenal mucosa w/o abnormalities. retroflexed views in the abdomen showed an ulcer. GI: Acute lower GI bleed, resolved hmg/hmt stable. s/p EGD and colonoscopy with biopsies. Patient will be discharged home with close follow up with GI. For the large hiatal hernia, a referral to a general surgeon was given to him on his discharge packet. He was instructed to avoid nsaids, continue protonix 40mg daily x 8 weeks. repeat EGD in 2 months to assess for ulcer healing. He has tolerated advancement of his diet. He reports soft brown bm this am, no blood. Denies abdominal pain, n/v. Psyche: ETOH abuse Liver cirrhosis patient states he is going to continue rehab at the [facility]. He is to continue with with thiamine, folate Hypokalemia @ 3.3 Repleted with potassium supplement. repeat labs outpatient. Date of Admission:02/22/18 Date of Discharge: 02/25/18 Minutes to complete discharge: 60 Discharge Summary Reason For Visit: RECTAL HEMORRHAGE, ABDOMINAL PAIN Current Active Problems Abdominal pain (Acute) Rectal bleeding (Acute) Condition: Stable - Instructions Diet, Activity, Other Instructions: Mr. Kinney You were placed under observation at [facility] for rectal bleeding. Here are our recommendations: Acute lowr GI bleed. resolved. your blood work is normal. You had an EGD (esophagogastroduodenoscopy) which revealed ulcerations. You were started on Protonix daily for 8 weeks. Please continue this medication for 8 weeks and follow up with Dr. Wang for a repeat EGD in two months to assess that the ulcers are healing. Please avoid NSAIDs (motrin, aspirin or ibuprophen) A colonoscopy performed showed internal hemorrhoids. Please continue the hemorrhoid suppositories. On full liquid diet ETOH abuse. Please continue your program at [facility]. Continue taking the Thiamine and Folate daily. Please return to the ER with any new or worsening symptoms. You asked me for a referral to a surgeon. Enclosed you will find his name (Dr. Palacio). I have referred you to two primary care doctors for follow up outpatient. Please call them with an appointment. Continue all your medications from your discharge list. Please call me with any questions Rhonda Amos [employer] [phone] [facility] Referrals: Oumar Zarate MD [Staff Physician] - 1 Week (primary care doctor. please call for an appointment. ) Karen Yates MD [Staff Physician] - 1 Week (primary care doctor. please call for an appointment. ) Wally Wang DO [Staff Physician] - 2 Weeks (follow up biopsy results of colonoscopy. You will also need to see him in 2 months for a repeat EGD.) Ulysses Palacio MD [Staff Physician] - (general surgeon) Disposition: HOME - Home Medications Comprehensive Discharge Medication List: Ambulatory Orders Folic Acid - 1 mg PO DAILY #30 tablet 02/25/18 Pantoprazole Sodium [Protonix] 40 mg PO DAILY #60 tablet.dr 02/25/18 Phenylephrine 0.25%/Starch [Anusol Suppository -] 1 each RC BID #60 supp.rect Thiamine HCl [Vitamin B1 -] 100 mg PO DAILY #30 tablet 02/25/18 This patient is new to me today: No Emergency Visit: Yes ED Registration Date: 02/22/18 Care time: The patient presented to the Emergency Department on the above date and was hospitalized for further evaluation of their emergent condition. Critical Care patient: No - Discharge Referral Referred to [facility] No
--- NOTE | 2018-02-25 15:22 | PATH ---
Surgical Pathology Report Patient Name: DEVAUGHN BO [facility]. Rec. #: [id number] /Age/Gender: 1965 (Age: 52) / M Account: [id number] Location: [address] [place] [address] Taken: 02/24/2018 Received: 02/24/2018 Reported: 02/25/2018 Physicians: Mendel Wang D.O. PHYSICIAN EMERGENCY DEPT Specimen(s) Received A: BX ANGULARIS AND BODY B: BX FUNDUS GASTRIC Clinical History Rectal hemorrhage, abdominal pain Postoperative diagnosis: Gastric fundus ulcer, hiatal hernia, gastritis, internal hemorrhoids Final Diagnosis A. ANGULARIS AND BODY, BIOPSY: GASTRIC MUCOSA WITH MILD ACTIVE CHRONIC GASTRITIS. IMMUNOSTAIN FOR H. PYLORI IS NEGATIVE. NEGATIVE FOR INTESTINAL METAPLASIA. B. GASTRIC FUNGUS ULCER, BIOPSY: GASTRIC MUCOSA WITH MODERATELY ACTIVE CHRONIC GASTRITIS. IMMUNOSTAIN FOR H. PYLORI IS NEGATIVE. NEGATIVE FOR INTESTINAL METAPLASIA. Electronically Signed Michele Wells M.D. Gross Description A. Received in formalin, labeled "biopsy angularis and body" are 2 [place], irregular portions of soft tissue measuring 0.2 and 0.3 cm. in greatest dimension. The specimens are submitted in toto in one cassette. B. Received in formalin, labeled "biopsy gastric fundus ulcer" are 2 [place], irregular portions of soft tissue averaging 0.2 cm. in greatest dimension. The specimens are submitted in toto in one cassette. /02/24/2018 saudi02/24/2018
--- NOTE | 2018-02-25 15:27 | PN ---
Progress Note, Physician Chief Complaint: rectal bleeding History of Present Illness: Pt seen/examined at bedside, feeling better, reports soft brown bm this am, no blood. Denies abdominal pain, n/v. - Current Medication List Current Medications: Active Medications Acetaminophen (Tylenol -) 650 mg PO Q6H PRN PRN Reason: HEADACHE Last Admin: 02/25/18 05:02 Dose: 650 mg Fluticasone Propionate (Flonase -) 1 spray NS BID [facility] Last Admin: 02/25/18 09:38 Dose: 1 spray Folic Acid (Folic Acid -) 1 mg PO DAILY [facility] Last Admin: 02/25/18 09:38 Dose: 1 mg Pantoprazole Sodium (Protonix -) 40 mg PO DAILY [facility] Last Admin: 02/25/18 09:37 Dose: 40 mg Starch (Anusol Suppository -) 1 each RC BID [facility] Stop: 03/01/18 21:59 Last Admin: 02/25/18 09:38 Dose: 1 each Thiamine HCl (Vitamin B1 -) 100 mg PO DAILY [facility] Last Admin: 02/25/18 09:38 Dose: 100 mg - Objective Vital Signs: Vital Signs Temperature 97.9 F 02/25/18 11:00 Pulse Rate 83 02/25/18 11:00 Respiratory Rate 18 02/25/18 11:00 Blood Pressure 132/82 02/25/18 11:00 O2 Sat by Pulse Oximetry (%) 99 02/25/18 10:00 Constitutional: Yes: Well Nourished, No Distress, Calm Cardiovascular: Yes: WNL, Regular Rate and Rhythm Respiratory: Yes: WNL, Regular, CTA Bilaterally Gastrointestinal: Yes: WNL, Normal Bowel Sounds, Soft, Other (Abd soft, nt, nd) Labs: CBC, BMP 02/25/18 06:00 02/25/18 06:00 INR, PTT INR 1.39 (0.83-1.09) H 02/24/18 07:30 Problem List - Problems (1) Rectal bleeding Assessment/Plan: s/p EGD and colonoscopy revealing gastric fundus ulcer, large hiatal hernia, gastropathy, biopsies taken r/o H pylori. Colonoscopy revealing fair prep in right colon, internal hemorrhoids, likely source of rectal bleeding. Hb remains stable. -Continue to closely monitor Hb and for evidence of bleeding -PPI daily -Follow up pathology results -Avoid straining/constipation -High fiber diet -Miralax daily -Pt will require repeat EGD in 8 weeks and repeat colonoscopy in view of prep on this exam (could be performed at same time). Pt informed and agreeable. Code(s): K62.5 - HEMORRHAGE OF ANUS AND RECTUM (2) Elevated LFTs Assessment/Plan: Likely secondary to alcoholic hepatitis, less likely underlying ?early cirrhosis though cannot exclude. LFTs now downtrending. No varices seen on EGD. -Recommend monitor LFT trend -Avoid nonessential hepatotoxic medications -Strict etoh abstinence -Check hepatitis serologies Code(s): R94.5 - ABNORMAL RESULTS OF LIVER FUNCTION STUDIES
== END 2018-02-25 16:50 | disposition home or self-care (01) ==
LOC: JER 19:53 → JERBED 22:38 → J6S 02-23 01:00
PROVIDERS: ADMIT Internal Medicine; ATTEND Nurse Practitioner Family
PROC: 0DB68ZX Excision of Stomach, Via Natural or Artificial Opening Endoscopic, Diagnostic (ICD-10-PCS; principal; 2018-02-22)
PROC: 0DJD8ZZ Inspection of Lower Intestinal Tract, Via Natural or Artificial Opening Endoscopic (ICD-10-PCS; 2018-02-22)
PROC: 3E0337Z Introduction of Electrolytic and Water Balance Substance into Peripheral Vein, Percutaneous Approach (ICD-10-PCS; 2018-02-22)
PROC: 3E033GC Introduction of Other Therapeutic Substance into Peripheral Vein, Percutaneous Approach (ICD-10-PCS; 2018-02-22)
PROC: 3E013GC Introduction of Other Therapeutic Substance into Subcutaneous Tissue, Percutaneous Approach (ICD-10-PCS; 2018-02-22)
DX: K62.5 Hemorrhage of anus and rectum (principal); K83.9 Disease of biliary tract, unspecified; Z87.891 Personal history of nicotine dependence; K74.60 Unspecified cirrhosis of liver; F10.10 Alcohol abuse, uncomplicated; R10.9 Unspecified abdominal pain; R94.5 Abnormal results of liver function studies; K29.50 Unspecified chronic gastritis without bleeding; K31.9 Disease of stomach and duodenum, unspecified; K25.9 Gastric ulcer, unspecified as acute or chronic, without hemorrhage or perforation; K44.9 Diaphragmatic hernia without obstruction or gangrene; K64.8 Other hemorrhoids
CPT/HCPCS: 36415; 76700-TC; 80053; 82140; 82272; 83735; 85025; 85027; 85610; 85730; 88305-TC; 88342-TC; 93005; 93010; 99284-25; G0378; J7030

== ENCOUNTER 2020-05-01 14:05 | Emergency (ER) | payer BC ==
[2020-05-01 14:38] VITALS: TEMP 98.7; BMI 32.1
[2020-05-01 16:56] VITALS: BP 154/91; PULSE 105
== END 2020-05-01 16:56 | disposition home or self-care (01) ==
LOC: JER 14:05
DX: B02.9 Zoster without complications (principal)
CPT/HCPCS: 99282-25

== ENCOUNTER 2020-07-08 07:21 | Emergency (ER) | payer BC ==
[2020-07-08 07:32] VITALS: BMI 31.7
[2020-07-08] MEDS ORDERED: SODIUM CHLORIDE 0.9% 500 ML INFUS.BAG IV ONE (08:44)
[2020-07-08 09:21] LABS: BASO % 0.5 % (0-2.0); EOS % 0.2 % (0-4.5); HEMATOCRIT 27.7 % (35.4-49); HEMOGLOBIN 8.6 GM/dL (11.7-16.9); MCHC 30.9 g/dl (32.0-35.9); MEAN CELL VOLUME 62.1 fl (80-96); MEAN PLT VOLUME 8.4 fl (7.5-11.1); MONO % 7.6 % (3.8-10.2); NEUT % 78.7 % (42.8-82.8); PLATELET COUNT 228 K/MM3 (134-434); RBC 4.47 M/mm3 (4.00-5.60); WHITE BLOOD COUNT 6.4 K/mm3 (4.0-10.0)
[2020-07-08 09:25] LABS: INR 1.03 (0.83-1.09); PROTHROMBIN TIME (PATIENT) 12.7 SEC (9.7-13.0)
[2020-07-08 09:26] LABS: CHLORIDE 107 mmol/L (98-107); SODIUM 138 mmol/L (136-145)
[2020-07-08 09:28] LABS: ACTIVATED PTT 23.1 SECONDS (25.2-36.5); CALCIUM 8.8 mg/dL (8.5-10.1); MCH 19.2 pg (25.7-33.7)
[2020-07-08 09:29] LABS: ALBUMIN 3.7 g/dl (3.4-5.0); ANION GAP 5 MMOL/L (8-16); BLOOD UREA NITROGEN 11.7 mg/dL (7-18); CO2 26 mmol/L (21-32); MAGNESIUM 1.9 mg/dL (1.8-2.4)
[2020-07-08 09:32] LABS: CREATININE 0.8 mg/dL (0.55-1.3); SGOT/AST 19 U/L (15-37); SGPT/ALT 25 U/L (13-61)
[2020-07-08 09:33] LABS: BILIRUBIN,TOTAL 0.4 mg/dL (0.2-1)
[2020-07-08 09:34] LABS: TOT PROT 6.6 g/dl (6.4-8.2)
[2020-07-08 09:35] LABS: ALK PHOS 47 U/L (45-117)
[2020-07-08 09:40] LABS: GLUCOSE,RANDOM 126 mg/dL (74-106)
[2020-07-08 10:44] LABS: ANISOCYTOSIS 3+; MACROCYTOSIS 0; PLATELET ESTIMATE NORMAL
[2020-07-08] MEDS ORDERED: NAPH,MB-DB/K PH,MBDB POWDER PACKET PO ONE (10:51)
[2020-07-08] MEDS ORDERED: NAPH,MB-DB/K PH,MBDB POWDER PACKET ONE (11:26)
[2020-07-08 12:28] VITALS: BP 110/61; PULSE 90; TEMP 98.1
== END 2020-07-08 12:28 | disposition left against medical advice (07) ==
LOC: JER 07:21
DX: R55 Syncope and collapse (principal); D64.9 Anemia, unspecified; R19.5 Other fecal abnormalities
CPT/HCPCS: 36415; 70450-TC; 71045-TC-FY; 72125-TC; 80053; 80307; 82272; 82550; 83735; 84100; 84484; 85025; 85610; 85730; 93005; 93010; 99285-25

== ENCOUNTER 2020-07-25 04:51 | Day surgery (SDC) | payer BC ==
[2020-07-24 09:43] VITALS: BMI 31.6
[2020-07-25 11:16] VITALS: TEMP 98.1
[2020-07-25 13:41] VITALS: BP 133/80; PULSE 82
== END 2020-07-25 14:55 | disposition home or self-care (01) ==
LOC: JASU-ENDO 04:51
PROVIDERS: ATTEND Internal Medicine Gastroenterology
PROC: 0DB78ZX Excision of Stomach, Pylorus, Via Natural or Artificial Opening Endoscopic, Diagnostic (ICD-10-PCS; 2020-07-25)
PROC: 0DJD8ZZ Inspection of Lower Intestinal Tract, Via Natural or Artificial Opening Endoscopic (ICD-10-PCS; principal; 2020-07-25 12:00)
DX: D64.9 Anemia, unspecified (principal); K57.30 Diverticulosis of large intestine without perforation or abscess without bleeding; K44.9 Diaphragmatic hernia without obstruction or gangrene; K29.50 Unspecified chronic gastritis without bleeding